=== PATIENT | male | born 1990 | race Two or more races ===

== ENCOUNTER 2025-05-11 17:41 | Emergency (ER) | payer MEDICAID, SELFPAY ==
[2025-05-11 17:42] VITALS: BMI 31.0
[2025-05-11 17:54] VITALS: BP 128/88; PULSE 124; RESP 18; TEMP 36.9; O2SAT 98
--- NOTE | 2025-05-11 17:59 | XR_ITS ---
Examination: Hand, left 3 views Technique: Hand AP, oblique, lateral 3 views Date and time of exam: May 11, 2025, 1822 hours INDICATIONS: Laceration with glass today with hand pain. FINDINGS: No fracture or dislocation. No opaque foreign body IMPRESSION: No opaque foreign body.
--- NOTE | 2025-05-11 18:02 | XR_ITS ---
Examination: Wrist, left 3 views Technique: Wrist AP, oblique, lateral 3 views Date and time of exam: May 01, 2025, 1823 hours INDICATIONS: Laceration with glass to the wrist today, wrist pain FINDINGS: Air densities in the soft tissue adjacent to the radial side of the wrist. No fracture. No opaque foreign body IMPRESSION: No opaque foreign body
[2025-05-11] MEDS: DIPHTH,PERTUSS(ACELL),TET VAC 0.5 ML SYR- ADULT IMi (18:13)
[2025-05-11] MEDS: ceFAZolin/D5W 2 GM IV 2 GM/100 ML BAG IV (18:16)
[2025-05-11 18:19] LABS: Basophils # (Auto) 0.0 Thou/mm3 (0.0-0.2); Basophils % (Auto) 0 % (0-2.5); Eosinophils # (Auto) 0.0 Thou/mm3 (0.0-0.5); Eosinophils % (Auto) 1 % (0-10); Hematocrit 45.7 % (41.0-53.0); Hemoglobin 15.9 g/dL (13.5-16.0); Immature Granulocytes Auto 0.02 Thou/mm3 (0.00-0.00); Lymphocytes # (Auto) 1.4 Thou/mm3 (1.0-4.8); Lymphocytes % (Auto) 27 % (10-50); Mean Corpuscular HGB Conc 34.8 g/dl (31.0-37.0); Mean Corpuscular Hemoglobin 30.9 pg (25.0-35.0); Mean Corpuscular Volume 89 fL (80-100); Monocytes # (Auto) 0.4 Thou/mm3 (0.0-0.8); Monocytes % (Auto) 7 % (0-12); Neutrophils # (Auto) 3.4 Thou/mm3 (1.8-7.7); Neutrophils % (Auto) 65 % (37-80); Nucleated Red Blood Cell # 0.00 Thou/mm3 (0.00-0.00); Nucleated Red Blood Cell % 0 /100 WBC (0); Platelet Count 228 Thou/mm3 (140-440); RDW Standard Deviation 41.6 fL (35.1-43.9); Red Blood Count 5.15 Miln/mm3 (4.50-5.90); White Blood Count 5.2 Thou/mm3 (3.8-10.6)
--- NOTE | 2025-05-11 18:19 | PD.EDWOUND ---
ED Wound/Laceration-RME/HPI General Chief Complaint: Wound/Laceration Stated Complaint: lac to right wrist with roof shingle Time Seen by Provider: 05/11/25 18:18 Source: patient Arrival date/time: 05/11/25 17:41 Limitations: no limitations RME / HPI RME / HPI narrative: Patient is a 34 healthy male with no chronic medical history. He states he drinks alcohol and drinks several beers today and is currently intoxicated. He is here today with the left wrist laceration. He states he was at home, working on [place] road, when he cut his left wrist on a shingle. He states he had bleeding and placed a tourniquet over the wound and also over his left bicep prior to his arrival.` Related Data Allergies Allergy/AdvReac Type Severity Reaction Status Date / Time No Known Allergies Allergy Verified 05/11/25 17:44 Review of Systems Review of Systems Systems Reviewed: All systems reviewed, normal except as documented ED Exam General Limitations: Present no limitations General appearance: Present alert and in no apparent distress Head Head exam: Present atraumatic Eye Eye exam: Present normal appearance, PERRL and EOMI ENT ENT exam: Present normal exam, normal oropharynx and mucous membranes moist Neck Neck exam: Present normal inspection, full ROM and trachea midline Chest Chest inspection: Present normal inspection and symmetric chest wall rise Respiratory Respiratory exam: Present normal lung sounds bilaterally Cardiovascular Cardiovascular exam: Present regular rate and tachycardia Abdominal Exam Abdominal exam: Present soft and normal bowel sounds Extremities Exam Extremities exam: Present full ROM and normal capillary refill Expanded Upper Extremity Exam Neuromotor exam: Normal wrist extension and thumb opposition Vascular exam: Normal capillary refill Back Exam Back exam: Present normal inspection and full ROM Neurological Exam Neurological exam: Present alert, oriented X3 and other (. Patient retains distal sensation up of the left 5 fingers.) Psychiatric Psychiatric exam: Present normal affect and normal mood Skin Skin exam: Present warm, dry and other (Macerated 7 cm laceration at the left wrist along the medial aspect of the radius. There is pulsatile bleeding.) Course Quality Measures none Orders Category Date Time Status TDap [Obtain Tdap Consent] X1 Care 05/11/25 17:56 Completed Transfer/Discharge Stat Discharge 05/11/25 18:27 Active XR hand comp LT min 3V Stat Exams 05/11/25 17:59 Completed XR wrist comp LT min 3V Stat Exams 05/11/25 18:02 Completed Alcohol, Blood Medical Stat Lab 05/11/25 17:59 Completed CBC Stat Lab 05/11/25 17:59 Completed CMP [Comprehensive Metabolic Panel] Stat Lab 05/11/25 17:59 Completed Drug Screen,Urine Stat Lab 05/11/25 18:01 Ordered PT [Prothrombin Time with INR] Stat Lab 05/11/25 17:59 Completed PTT [Partial Thromboplastin Time] Stat Lab 05/11/25 17:59 Completed Type and Screen Stat Lab 05/11/25 17:59 Completed Urinalysis, C/S if Indicated Stat Lab 05/11/25 18:01 Ordered Lidocaine 1% 20 ml [Xylocaine 1% 20 ML] Med 05/11/25 17:58 Discontinued 10 ml INFL X1 ONE Morphine Inj Med 05/11/25 18:12 Discontinued 4 mg IVP X1 ONE TET,DIP/PERT AC (Adult)-Tdap [Boostrix Adult (Tdap) Med 05/11/25 17:56 Discontinued Vacc] 0.5 ml IMI .ONCE ONE ceFAZolin/D5W 2 GM IV [Ancef 2gm Ivpb] Med 05/11/25 17:55 Discontinued 2 gm in 100 ml IV X1 Vital Signs Vital signs: Vital Signs Temperature 98.4 F 05/11/25 17:54 Pulse Rate 124 H 05/11/25 17:54 Respiratory Rate 18 05/11/25 17:54 Blood Pressure 128/88 H 05/11/25 17:54 Pulse Oximetry (%) 98 05/11/25 17:54 Oxygen Delivery Method Room Air 05/11/25 17:54 Wound / Laceration MDM Narrative MDM Narrative:: Patient is a 34 healthy male with no chronic medical history. He states he drinks alcohol and drinks several beers today and is currently intoxicated. He is here today with the left wrist laceration. He states he was at home, working on [place] road, when he cut his left wrist on a shingle. He states he had bleeding and placed a tourniquet over the wound and also over his left bicep prior to his arrival.` The patient arrived he had 2 handkerchief's using as a tourniquets. 1 handkerchief was placed over his left wrist and another 1 over his left bicep. Patient was self ambulating and mentating. His blood pressure was 120/88, heart rate 124, vital signs otherwise unremarkable. A blood pressure cuff was placed just proximal to the wound and the bicep tourniquet was removed. The handkerchief tourniquet was removed, wound was quickly visualized and a wet-to-dry dressing was placed using ABD pad and Kerlix. Verbal consent obtained. 3 cc of 1% lidocaine was infiltrated into the surrounding tissue. Bleeding was controlled using #2, figure 8 sutures using 3-0, Vicryl sutures. An additional wet-to-dry dressing was then placed. Patient data External records reviewed:: None Clinical information provided by:: patient and spouse Social determinants that could affect healthcare access:: alcohol use Patient has the following chronic illnesses:: n/a How is presenting disease/condition affected by chronic disease/condition?: no chronic disease Evaluation data The following diagnostics were reviewed and interpreted by me:: lab results (CBC is unremarkable. Metabolic panel is unremarkable. Alcohol level is 139.5 mg/dL) and radiology exam(s) (No radiographic evidence of acute osseous injury) Lab and/or radiology exams considered but not ordered:: n/a Interpretation Summary: Workup was unremarkable with the exception of elevated alcohol level Medications / Prescriptions Medications or Prescriptions considered but not ordered:: n/a Medication administrations:: Medication Administration History Discontinued Medications Diphtheria/Tetanus/Acell Pertussis (Diphth,Pertuss(Acell),Tet Vac 0.5 Ml Syr- Adult) 0.5 ml IMi .ONCE ONE Stop: 05/11/25 17:57 Last Admin: 05/11/25 18:13 Dose: 0.5 ml Documented By: KEILA Cefazolin Sodium (Ancef 2gm Ivpb) 2 gm in 100 mls @ 200 mls/hr IV X1 ONE Stop: 05/11/25 18:24 Last Infusion: 05/11/25 18:46 Dose: Infused Documented By: [email or web address] Admin: 05/11/25 18:16 Dose: 200 mls/hr Documented By: KEILA Lidocaine HCl (Lidocaine Hcl 1% 20 Ml Vial) 10 ml INFL X1 ONE Stop: 05/11/25 17:59 Last Admin: 05/11/25 18:26 Dose: 10 ml Documented By: GM Comments: GIVEN TO RATTS PA-C Morphine Sulfate (Morphine Sulf Inj 10 Mg/Ml Vial) 4 mg IVP X1 ONE Stop: 05/11/25 18:13 Last Admin: 05/11/25 18:26 Dose: 4 mg Documented By: GM See above Consultations Consultation(s) initiated? (list below): No Diagnosis Wound Differential Diagnosis: laceration Most likely diagnosis given after review of the tests above:: Deep left wrist laceration with arterial bleed Admission Indicated Admission indicated?: indicated Admission Request Was there a request for admission?: Yes Admission Attestation Admission request attestation: Discussed case with [] from Hospitalist service regarding admission. Discussed patients ED course, exam findings, labs, and radiology results. The Hospitalist [agrees,declines] to accept the patient for admission. Disposition Plan Disposition Plan: Transfer (Patient was transferred to a higher level care at [facility] in ) Discharge Plan Plan Patient Disposition: [facility] Acute Care [facility] Facility Pt Being Transferred to: [facility] Service Needed for Transfer: Plastic Surgery Prescriptions/Referrals Referrals: No Primary/Family,Physician [Primary Care Provider] - In 1 week Problem List Clinical Impression: Laceration Patient/Caregiver Discharge Instructions Print Language: Upper Sorbian Stand Alone Forms: Kaylah Award Info., Patient Portal Info Letter Vaccines Vaccines Given During Stay: TDaP
[2025-05-11] MEDS: LIDOCAINE HCL 1% 20 ML VIAL 10 ML INFL (18:26)
[2025-05-11] MEDS: MORPHINE SULF INJ 10 MG/ML VIAL 4 MG IVP (18:26)
[2025-05-11 18:42] LABS: Alanine Aminotransferase 56 U/L (10-49); Albumin, Serum 4.7 gm/dL (3.5-5.0); Albumin/Globulin Ratio 1.5 (1.2-2.2); Alcohol, Blood Medical 139.5 mg/dL (0-10.0); Alkaline Phosphatase 77 U/L (46-116); Anion Gap 14 (7-16); Aspartate Amino Transferase 51 U/L (0-34); BUN/Creatinine Ratio 7 Ratio (12-20); Bilirubin,Total 0.6 mg/dL (0.3-1.2); Blood Urea Nitrogen 8 mg/dL (9-23); Calcium 10.2 mg/dL (8.3-10.6); Calcium (Corrected) 10.2 mg/dL (8.5-10.1); Carbon Dioxide 20.7 mMol/L (20.0-31.0); Chloride 108 mMol/L (98-107); Creatinine (Component) 1.2 mg/dL (0.6-1.3); Estimated Creatinine Clearance 98.8 mL/min (>60); Globulin 3.1 gm/dL (2.3-3.5); Glucose 78 mg/dL (74-106); Osmolality,Calculated 282 (275-295); Potassium 4.2 mMol/L (3.4-5.1); Sodium 143 mMol/L (136-145); Total Protein 7.8 gm/dL (5.7-8.2); eGFR > 60 See Note
[2025-05-11 18:43] LABS: INR 1.0 (0.9-1.3); Partial Thromboplastin Time 27.9 Seconds (22.0-36.0); Prothrombin Time 10.6 Seconds (9.0-12.2)
--- NOTE | 2025-05-11 18:53 | PC.CC ---
Addendum entered by Leah Curran RN 05/11/25 19:32: Called [facility] spoke to Jennifer, she asked we call back as they are in shift change. Addendum entered by Leah Curran RN 05/11/25 19:31: 1900: Aileen Cerrato spoke to [facility]. clinical update provided. handoff report given to ECTOR Carvalho. Original Note: received request for transfer for hand surgery or plastics for left wrist laceration with arterial injury. Clinicals sent to [facility]. called [facility] twice to follow up, no answer. Sent clinicals to [facility]
[2025-05-11 19:12] VITALS: BP 121/76; PULSE 96; RESP 19; O2SAT 100
--- NOTE | 2025-05-11 19:43 | PC.NURSE ---
pt max on dilt drip and and HR 150's-new order received by Dr. Arevalo for 250 ml bag of ns bolus and new medication may be ordered
--- NOTE | 2025-05-11 20:06 | PC.NURSE ---
1955-Aileen from [facility] called with acceptance information. MD EZEQUIEL GARCIA accepts ER to ER. Nurse Report to called at [phone]
[2025-05-11 20:50] VITALS: BP 128/90; PULSE 87; RESP 19; TEMP 36.5; O2SAT 99
[2025-05-11 21:21] VITALS: BP 124/80; PULSE 88; RESP 17; TEMP 37
== END 2025-05-11 23:00 | disposition short-term general hospital (02) ==
PROVIDERS: Physician Assistant Medical; Emergency Provider Emergency Medicine
DX: S61.512A Laceration without foreign body of left wrist, initial encounter (principal); W45.8XXA Other foreign body or object entering through skin, initial encounter; Z23 Encounter for immunization
CPT/HCPCS: 12002; 36415; 73110; 73130; 80053; 80307; 80320; 81001; 85025; 85610; 85730; 86850; 86900; 86901; 90471; 90715; 96365; 96375; 99284; J0689; J2270; J3490; G0480